=== PATIENT | male | born 1950 | race African-American/Black ===

== ENCOUNTER 2018-05-06 14:37 | Inpatient (IN) | payer OTHER, BC | END 2018-05-08 16:00 | disposition home or self-care (01) | LOC: ER 14:37 → TELE 16:54 → TELE-WESTW 05-07 16:00 | DX: I21.4 Non-ST elevation (NSTEMI) myocardial infarction (principal); I16.0 Hypertensive urgency ==

== ENCOUNTER 2018-10-11 12:00 | Inpatient (IN) | payer OTHER ==
[~2018-10-11] VITALS: Ht 185.4 cm; Wt 77.1 kg
[2018-10-11] MEDS ORDERED: SODIUM CHLORIDE 0.9% 500 ML IVB ONE (12:31)
[2018-10-11] MEDS ORDERED: KETOROLAC TROMETH 30 MG/ML 1ML VIAL IV ONE (12:45)
[2018-10-11 13:51] LABS: Urine Bacteria NONE SEEN /hpf (None Seen); Urine Blood 2+ /uL (Negative); Urine Mucus FEW (None Seen); Urine WBC 48 /hpf (0 - 3)
[2018-10-11 13:52] LABS: Potassium 3.8 mmol/L (3.5-5.1)
[2018-10-11 14:08] LABS: Albumin 3.3 g/dL (3.4-5.0); BUN/Creatinine Ratio 17.1; Bilirubin, Total 1.4 mg/dL (0.2-1.0); Calcium 8.8 mg/dL (8.5-10.1); Magnesium 2.8 mg/dL (1.6-2.6); Total Protein 7.6 g/dL (6.4-8.2)
[2018-10-11 14:35] VITALS: BP 150/84
[2018-10-11] MEDS ORDERED: KETOROLAC TROMETH 60MG/2ML VIAL ONE (14:48)
[2018-10-11] MEDS ORDERED: SODIUM CHLORIDE 0.9% 1,000 ML IV SCH (14:57)
[2018-10-11] MEDS ORDERED: TEMAZEPAM 15 MG CAP PO PRN (15:00)
[2018-10-11] MEDS ORDERED: MORPHINE SULFATE 4 MG/ML SYR/VIAL IV PRN (15:00)
[2018-10-11] MEDS ORDERED: PROMETHAZINE HCL 25 MG/ML 1ML IV PRN (15:00)
[2018-10-11] MEDS ORDERED: traMADol HCL 50 MG TAB PO PRN (15:00)
[2018-10-11] MEDS ORDERED: ALBUTEROL SULF 2.5 MG/0.5ML(0.5%) NEB SOLN NEB PRN (15:00)
[2018-10-11] MEDS ORDERED: cefTRIAXone 1GM/50ML D5W 50 ML IV ONE (15:00)
[2018-10-11] MEDS ORDERED: ACETAMINOPHEN 500 MG TAB PO PRN (15:00)
[2018-10-11 15:34] LABS: Lymphocytes % (auto) 10.9 % (10.0-50.0); Neutrophils % (auto) 80.8 % (37.0-80.0); White Blood Cell 13.6 10^3/uL (4.4-10.8)
[2018-10-11 15:35] LABS: Basophils % (auto) 0.5 % (0.0-2.0); Eosinophils % (auto) 0.7 % (0.0-7.0); Lymphocytes # (auto) 1.5 uL; Monocytes % (auto) 7.1 % (0.0-12.0)
[2018-10-11 15:36] LABS: Basophils # (auto) 0.1 uL; Eosinophils # (auto) 0.1 uL; Hematocrit 40.3 % (41.0-53.0); Hemoglobin 12.9 g/dL (13.5-17.5); Mean Corpuscular Hemoglobin 26.7 pg (28.0-32.0); Mean Corpuscular Hgb Conc. 32.1 g/dL (32.0-36.0); Mean Corpuscular Volume 83.2 fL (80.0-100.0); Red Blood Cells 4.84 10^6/uL (4.5-5.90)
[2018-10-11 15:37] LABS: Platelet Count (auto) 330 10^3/uL (140-450)
[2018-10-11] MEDS ORDERED: FAMOTIDINE 20 MG TAB PO SCH (22:00)
[2018-10-12] MEDS ORDERED: cefTRIAXone 1GM/50ML D5W 50 ML IV SCH (09:00)
== END 2018-10-11 17:16 | disposition left against medical advice (07) | DRG 699 ==
LOC: ER 12:07 → OVERFLOW 14:59
PROVIDERS: ADMIT Internal Medicine; ATTEND Internal Medicine
DX: N32.9 Bladder disorder, unspecified (principal); N39.0 Urinary tract infection, site not specified; I11.0 Hypertensive heart disease with heart failure; F17.210 Nicotine dependence, cigarettes, uncomplicated; I27.20 Pulmonary hypertension, unspecified; I50.9 Heart failure, unspecified; J44.9 Chronic obstructive pulmonary disease, unspecified; E78.5 Hyperlipidemia, unspecified; Z53.21 Procedure and treatment not carried out due to patient leaving prior to being seen by health care provider; R31.9 Hematuria, unspecified; Z86.73 Personal history of transient ischemic attack (TIA), and cerebral infarction without residual deficits
CPT/HCPCS: 36415; 74176; 80053; 81001; 83690; 83735; 85025; 94761; 96361; 96374; G0378; J0696; J1885

== ENCOUNTER 2018-10-15 13:05 | Emergency (ER) | payer OTHER ==
[~2018-10-15] VITALS: Ht 185.4 cm; Wt 77.1 kg
[2018-10-15] MEDS ORDERED: SODIUM CHLORIDE 0.9% 500 ML IV ONE (13:56)
[2018-10-15] MEDS ORDERED: MORPHINE SULF INJ 2 MG/ML SYRINGE 1ML IV ONE (14:15)
[2018-10-15] MEDS ORDERED: IOHEXOL 300 MG/ML 100ML BOTTLE IJ ONE (14:18)
[2018-10-15 14:21] LABS: Basophils # (auto) 0.1 uL; Basophils % (auto) 1.3 % (0.0-2.0); Eosinophils # (auto) 0.3 uL; Eosinophils % (auto) 2.8 % (0.0-7.0); Hematocrit 37.8 % (41.0-53.0); Hemoglobin 12.4 g/dL (13.5-17.5); Lymphocytes # (auto) 1.4 uL; Lymphocytes % (auto) 14.2 % (10.0-50.0); Mean Corpuscular Hemoglobin 27.4 pg (28.0-32.0); Mean Corpuscular Hgb Conc. 32.8 g/dL (32.0-36.0); Mean Corpuscular Volume 83.5 fL (80.0-100.0); Monocytes # (auto) 0.6 uL; Monocytes % (auto) 6.5 % (0.0-12.0); Neutrophils # (auto) 7.3 uL; Neutrophils % (auto) 75.2 % (37.0-80.0); Platelet Count (auto) 311 10^3/uL (140-450); Red Blood Cells 4.53 10^6/uL (4.5-5.90); Red Cell Distribution Width 15.9 % (11.8-14.3); White Blood Cell 9.8 10^3/uL (4.4-10.8)
[2018-10-15 14:36] LABS: INR 0.99 (0.9-1.15); Partial Thromboplastin Time 24.8 sec (23.64-32.05)
[2018-10-15 14:43] LABS: Albumin 3.4 g/dL (3.4-5.0); Calcium 8.7 mg/dL (8.5-10.1); Potassium 3.4 mmol/L (3.5-5.1)
[2018-10-15 14:47] LABS: BUN/Creatinine Ratio 17.3; Bilirubin, Total 0.7 mg/dL (0.2-1.0); Total Protein 7.5 g/dL (6.4-8.2)
[2018-10-15] MEDS ORDERED: ONDANSETRON HCL 4 MG/2 ML VIAL IV ONE (15:00)
[2018-10-15 15:59] LABS: Urine Bacteria NONE SEEN /hpf (None Seen); Urine Blood 3+ /uL (Negative); Urine Mucus FEW (None Seen); Urine WBC 3 /hpf (0 - 3)
[2018-10-15] MEDS ORDERED: POTASSIUM CHL 10 Meq TABLET PO ONE (16:00)
[2018-10-15] MEDS ORDERED: DOCUSATE SOD 100 MG CAP PO ONE (16:00)
[2018-10-15 19:28] VITALS: BP 168/88
[2018-10-15] MEDS ORDERED: LEVOFLOXACIN 500 MG TAB PO ONE (19:30)
== END 2018-10-15 13:10 | disposition short-term general hospital (02) ==
LOC: ER 13:08
DX: N32.9 Bladder disorder, unspecified (principal); N30.90 Cystitis, unspecified without hematuria; K59.00 Constipation, unspecified; J44.9 Chronic obstructive pulmonary disease, unspecified; I10 Essential (primary) hypertension; F17.210 Nicotine dependence, cigarettes, uncomplicated; Z86.73 Personal history of transient ischemic attack (TIA), and cerebral infarction without residual deficits
CPT/HCPCS: 36415; 74178; 80053; 81001; 83690; 85025; 85610; 85730; 87086; 94761; 96374; 96375; 99285; J2270; J2405; J7030; Q9967